=== PATIENT | male | born 1975 | race Two or more races ===

== ENCOUNTER 2024-08-18 09:51 | Emergency (ER) | payer OTHER ==
[~2024-08-18] VITALS: Ht 165.1 cm; Wt 73.2 kg
[2024-08-18 10:38] VITALS: BP 128/78; PULSE 78; RESP 18; TEMP 98.4; O2SAT 98
[2024-08-18] MEDS: TETANUS-DIPTH-ACEL PERTUSSIS 0.5ML SYR Tdap IM ONE (10:55)
== END 2024-08-18 11:23 | disposition home or self-care (01) ==
LOC: ER 09:51
DX: S01.412A Laceration without foreign body of left cheek and temporomandibular area, initial encounter (principal); W18.09XA Striking against other object with subsequent fall, initial encounter; Y93.89 Activity, other specified; Y92.69 Other specified industrial and construction area as the place of occurrence of the external cause; Y99.8 Other external cause status
CPT/HCPCS: 12011; 90471; 90715

== ENCOUNTER 2024-08-25 09:29 | Emergency (ER) | payer OTHER ==
[~2024-08-25] VITALS: Ht 165.1 cm; Wt 70.8 kg
[2024-08-25 10:25] VITALS: BP 116/79; PULSE 69; RESP 16; TEMP 98.6; O2SAT 97
== END 2024-08-25 10:28 | disposition home or self-care (01) ==
LOC: ER 09:29
DX: S01.412D Laceration without foreign body of left cheek and temporomandibular area, subsequent encounter (principal); X58.XXXD Exposure to other specified factors, subsequent encounter